=== PATIENT | female | born 1985 | race Caucasian/White ===

== ENCOUNTER 2020-04-07 16:57 | Outpatient (CLI) | payer BC, SELFPAY ==
--- NOTE | ~2020-04-07 | MM_ITS ---
EXAMINATION: MM screening alejo BI w fernando HISTORY: Screening mammogram TECHNIQUE: Craniocaudal and mediolateral oblique 3-D tomosynthesis images were obtained and synthetic 2-D images were generated. CAD analysis was submitted and interpreted. COMPARISON: None, baseline BREAST PARENCHYMAL COMPOSITION: The breasts are heterogeneously dense, which may obscure small masses . FINDINGS: RIGHT BREAST: There are possible low-density masses in the middle third of the inner breast. No suspi cious calcification or architectural distortion are identified.. LEFT BREAST: There is a 4 mm mass in the middle third of the outer breast and a possible low density subareolar mass. No suspicious calcification or architectural distortion are identified.. IMPRESSION: 1. Bilateral breast findings as described above. 2. Additional mammographic views and possible breast ultrasound are recommended to evaluate for malig scott and establish a baseline given that this is the first mammographic examination. BI-RADS Category 0: Incomplete: Needs additional imaging evaluation. Reviewed, dictated and finalized at location A. CT CONTROL INSPECTOR IMPRESSION: 1. Bilateral breast findings as described above. 2. Additional mammographic views and possible breast ultrasound are recommended to evaluate for malignancy and establish a baseline given that this is the fir st mammographic examination. BI-RADS Category 0: Incomplete: Needs additional imaging evaluation.
== END 2020-04-07 16:58 | disposition home or self-care (01) ==
DX: Z12.31 Encounter for screening mammogram for malignant neoplasm of breast (principal); R92.8 Other abnormal and inconclusive findings on diagnostic imaging of breast
CPT/HCPCS: 77063; 77067

== ENCOUNTER 2020-05-22 11:32 | Outpatient (CLI) | payer BC, SELFPAY ==
--- NOTE | ~2020-05-22 | MMUS_ITS ---
EXAMINATION: MM diagnostic mammo BI, US breast BI complete HISTORY: Follow-up possible breast masses. TECHNIQUE: Additional 3-D tomosynthesis images of the breasts were performed and synthetic 2-D images were generated. CAD analysis was submitted and interpreted. High resolution bilateral limited breast ultrasound was performed. COMPARISON: 04/07/2020 BREAST PARENCHYMAL COMPOSITION: The breasts are heterogenously dense, which may obscure small masses. FINDINGS: MAMMOGRAPHIC FINDINGS: There are no suspicious masses, calcifications or architectural distortion in either breast to sugges t malignancy. In the mid outer aspect of the left breast there is a small circumscribed radiolucent m ass, likely benign lymph node. ULTRASOUND: Right breast ultrasound: Normal heterogeneous echotexture without focal solid or cystic mass. Left breast ultrasound: At 12:00 near the nipple there is a hypoechoic mass with some irregular margins and mixed posterior a ttenuation measuring 11 x 7 x 6 mm. This mass appears to be contiguous with adjacent prominent ducts, possibly a dilated subareolar duct. No additional suspicious masses are identified. IMPRESSION: 1. Probable benign left breast mass, most likely dilated subareolar duct. 2. Recommend 6 month follow-up left breast ultrasound BI-RADS category 3, probably benign findings. Reviewed, dictated and finalized at location A. AL ASSISTANT IMPRESSION: 1. Probable benign left breast mass, most likely dilated subareolar duct. 2. Recommend 6 month follow-up left breast ultrasound BI-RADS category 3, probably benign findings.
== END 2020-05-22 11:33 | disposition home or self-care (01) ==
LOC: ANHIMG 11:36
DX: R92.8 Other abnormal and inconclusive findings on diagnostic imaging of breast (principal)
CPT/HCPCS: 76641; 77066

== ENCOUNTER 2024-04-22 00:12 | Emergency (ER) | payer BC, SELFPAY ==
--- NOTE | ~2024-04-22 | XR_ITS ---
Portable chest x-ray Comparison: None Clinical History: Chest pain Findings: Lungs are clear, without focal consolidation or pleural effusion. Cardiomediastinal silho uette is unremarkable. Bones and soft tissues are unremarkable. Impression: Clear lungs. Reviewed, dictated and finalized at location M. TANCE ABUSE COUNSELOR Impression: Clear lungs.
--- NOTE | 2024-04-22 00:13 | ECG_ITS ---
Test Date: 2024-04-22 00:25:01 Measurements Intervals Walters Rate: 81 P: 28 NJ: 152 QRS: 38 QRSD: 106 T: 52 QT: 400 QTc: 466 Interpretive Statements SINUS RHYTHM No previous ECG available for comparison Electronically Signed On 04-22-2024 18:08:27 FRUIT OR NUT GROWER by Shania Perez M.D.
[2024-04-22 00:14] VITALS: BP 100/86; PULSE 88; RESP 17; TEMP 36.6; O2SAT 100
[2024-04-22] MEDS: ASPIRIN 81 MG CHEWABLE TABLET 324 MG PO (00:23)
--- NOTE | 2024-04-22 00:30 | ED_ITS ---
HPI - Chest Pain General Chief Complaint: Chest Pain Stated Complaint: epigastric/chest pain Time Seen by Provider: 04/22/24 00:26 History of Present Illness HPI narrative: 38-year-old female presents to emergency department for sudden-onset epigastric abdominal pain that started at 2100 tonight. Patient states she had a salad with ranch dressing for a chicken just prior to the onset of symptoms. She describes the pain as a tight squeezing sensation, does not radiate. Reports a history of C-sections, otherwise no abdominal surgeries. Denies cough, congestion, fever, dysuria or hematuria. No cardiac history. Endorses nausea, no vomiting or diarrhea. Patient is on wegovy for weight loss. Denies smoking. States she drinks alcohol socially. Denies melena or hematochezia. Related Data Allergies Allergy/AdvReac Type Severity Reaction Status Date / Time No Known Allergies Allergy Verified 04/22/24 00:13 Review of Systems 2 Review of Systems: All systems reviewed & are unremarkable except as noted in HPI and below Exam 2 Narrative: GENERAL: Well-appearing, well-nourished, and in no acute distress. HEAD: Normocephalic, atraumatic. EYES: EOMI. ENT: Nares clear, no rhinorrhea or epistaxis. Mucous membranes moist. NECK: Supple. CHEST: Clear to auscultation. No respiratory distress. HEART: Regular rate and rhythm. No murmur heard. Normal peripheral pulses. ABDOMEN: Normoactive bowel sounds. Abdomen soft with tenderness in the epigastrium. No rebound, guarding or rigidity. Negative Maria's. No CVA tenderness EXTREMITIES: Normal range of motion. No edema. SKIN: Warm, dry, no rash. NEURO: No focal deficits. Alert and oriented x3 Course Vital Signs Vital signs: Vital Signs Temperature 97.8 F 04/22/24 00:14 Pulse Rate 88 04/22/24 00:14 Respiratory Rate 17 04/22/24 00:14 Blood Pressure 100/86 04/22/24 00:14 Pulse Oximetry 100 04/22/24 00:14 Oxygen Delivery Room Air 04/22/24 00:14 Temperature 97.8 F 04/22/24 00:14 Pulse Rate 70 04/22/24 00:39 Respiratory Rate 12 04/22/24 00:39 Blood Pressure 124/69 04/22/24 00:39 Pulse Oximetry 100 01/20/25 00:39 Oxygen Delivery Room Air 04/22/24 00:39 MDM - Chest Pain MDM Narrative Medical decision making narrative: 38-year-old female presents to the emergency department for epigastric abdominal pain that started at 9:00 p.m. today after eating a salad with range in for chicken. Triage vitals are stable. Exam is significant for tenderness to the epigastrium. Remainder of abdomen is soft and nontender, no rebound or rigidity, no guarding, negative Maria's sign. DX includes gastritis, GERD, pancreatitis, cholecystitis, ACS, other Lab work without leukocytosis or anemia. Chemistries are unremarkable with normal LFTs, normal lipase. EKG shows normal sinus rhythm with a rate of 81 ppm, normal AL interval, normal QRS duration, normal QTC, no ischemic changes. Chest x-ray without acute cardiopulmonary findings. Patient received Pepcid, Zofran and GI cocktail. Unfortunately she immediately vomited the GI cocktail. She then received IV Protonix, IV Reglan and re- attempted the GI cocktail with significant improvement. Patient states she feels much better and would like to be discharged home. Presentation consistent with gastritis. Will provide GI cocktail for home and Pepcid. Advised follow- up with GI. Return precautions discussed. She and her are agreeable with the plan verbalized understanding. Discharged in stable condition. Lab Data 04/22/24 00:29 04/22/24 00:29 Labs: Lab Results 04/22/24 Range/Units 00:29 WBC 9.8 (4.5-10.0) K/mm3 RBC 4.14 L (4.2-5.4) M/mm3 Hgb 12.1 (12.0-15.0) g/dL Hct 37.2 (37.0-47.0) % MCV 89.9 (80-100) fl MCH 29.2 (26-34) pg MCHC 32.5 (32-36) g/dl RDW 12.9 (11.5-14.5) % Plt Count 300 (150-375) k/mm3 MPV 9.1 (7.4-10.4) fl Immature Gran % (Auto) 0.3 (0-0.5) % Neut % (Auto) 64.5 (45.5-73.1) % Lymph % (Auto) 26.1 (18.3-44.2) % [place] % (Auto) 7.2 (2.6-8.5) % Eos % (Auto) 1.6 (0-4.4) % Baso % (Auto) 0.3 (0.2-1.2) % Lymph # (Auto) 2.56 (0.9-3.2) K/mm3 [place] # (Auto) 0.7 H (0.1-0.6) K/mm3 Eos # (Auto) 0.2 (0-0.3) K/mm3 Baso # (Auto) 0.0 (0.0-0.1) K/mm3 Abs Immat Gran (auto) 0.03 (0.00-0.031) K/mm3 Absolute Neuts (auto) 6.3 (1.3-6.7) K/mm3 Absolute Nucleated RBC 0.000 (0.0-0.012) K/mm3 Nucleated RBC % 0.0 (0.0-0.2) % PT 12.8 (11.1-14.7) Seconds INR 0.9 APTT 29.7 (22.3-36.8) Seconds Sodium 138 (137-145) mmol/L Potassium 3.7 (3.4-5.0) mmol/L Chloride 102 (98-107) mmol/L Carbon Dioxide 28 (22-30) mmol/L Anion Gap 8 (4-12) mmol/L BUN 9 (7-17) mg/dL Creatinine 0.90 (0.7-1.0) mg/dL Estim Creat Clear Calc 91 ml/min Estimated GFR > 60 (59 - ) Glucose 110 (65-110) mg/dL Calcium 8.7 (8.4-10.2) mg/dL Total Bilirubin 0.4 (0.2-1.3) mg/dL AST 20 (14-36) U/L ALT 10 (6-35) U/L Alkaline Phosphatase 58 (38-126) U/L Troponin I < 0.012 (0.000-0.034) ng/mL Total Protein 7.0 (6.3-8.2) g/dL Albumin 3.9 (3.5-5.1) g/dL Lipase 85 (23-300) U/L Discharge Plan Discharge Clinical Impression: Abdominal pain, epigastric Patient Disposition: Home, Self-Care Condition: Stable Instructions: Antibiotic Form, Abdominal Pain (ED) Additional Instructions: Your evaluated in the emergency department for epigastric abdominal pain. Your workup here is reassuring. Her presentation is consistent with inflammation of the stomach lining called gastritis as discussed. Please stay away from acidic foods, spicy foods, fatty foods, alcohol, NSAIDs such as ibuprofen/Motrin, naproxen/Aleve, coffee. Take the famotidine as needed and the viscous lidocaine and Maalox as needed. Follow up with the GI doctor. Follow up with her primary care provider. Return to the emergency department if you develop chest pain, shortness of breath, fever 100.4 or greater, you are unable to tolerate food or fluids, blood in her stool, dark tarry stools or other concerning symptoms. Patient Language: Estonian Prescriptions: New lidocaine HCl [Lidocaine Viscous] 2 % solution 1 applic PO TID PRN (Reason: pain) Qty: 100 0RF alum-mag hydroxide-simeth [Maalox Maximum Strength] 400-400-40 mg/5 mL suspension 5 ml PO QID PRN (Reason: indigestion) Qty: 3000 0RF famotidine 20 mg tablet 20 mg PO DAILY Qty: 14 0RF ondansetron 4 mg tablet,disintegrating 4 mg PO Q8H Qty: 10 0RF Follow-up/Referrals: PHYSICIAN NOT ON STAFF,NONSTAFF [Primary Care Provider] - Harley Díaz MD [Physician] -
[2024-04-22] MEDS: BELLADONNA ALK/PHENOB ELIX 10 ML, MAG HYDROX/ALUMINUM HYD/SIMETH 30 ML, LIDOCAINE 2% VI... PO ×2 (00:33→01:43)
[2024-04-22] MEDS: ONDANSETRON INJ 4 MG/2 ML VIAL IV PUSH (00:34)
[2024-04-22] MEDS: FAMOTIDINE 20 MG/2 ML VIAL IV PUSH (00:35)
[2024-04-22 00:36] LABS: Basophils Percent Auto 0.3 % (0.2-1.2); Eosinophils Absolute Auto 0.2 K/mm3 (0-0.3); Eosinophils Percent Auto 1.6 % (0-4.4); Hematocrit 37.2 % (37.0-47.0); Hemoglobin 12.1 g/dL (12.0-15.0); Immature Granulocyte Absolute 0.03 K/mm3 (0.00-0.031); Immature Granulocyte Percent A 0.3 % (0-0.5); Lymphocytes Absolute Auto 2.56 K/mm3 (0.9-3.2); Lymphocytes Percent Auto 26.1 % (18.3-44.2); Mean Corpuscular HGB Conc 32.5 g/dl (32-36); Mean Corpuscular Hemoglobin 29.2 pg (26-34); Mean Corpuscular Volume 89.9 fl (80-100); Mean Platelet Volume 9.1 fl (7.4-10.4); Monocytes Absolute Auto 0.7 K/mm3 (0.1-0.6); Monocytes Percent Auto 7.2 % (2.6-8.5); Neutrophils Absolute Auto 6.3 K/mm3 (1.3-6.7); Neutrophils Percent Auto 64.5 % (45.5-73.1); Platelet Count Result 300 k/mm3 (150-375); Red Blood Count 4.14 M/mm3 (4.2-5.4); Red Cell Distribution Width 12.9 % (11.5-14.5); White Blood Count 9.8 K/mm3 (4.5-10.0)
[2024-04-22 00:38] VITALS: PULSE 77
[2024-04-22 00:39] VITALS: BP 124/69; PULSE 70; RESP 12; O2SAT 100
[2024-04-22 00:47] LABS: Alanine Aminotransferase 10 U/L (6-35); Albumin Level 3.9 g/dL (3.5-5.1); Alkaline Phosphatase 58 U/L (38-126); Anion Gap 8 mmol/L (4-12); Aspartate Amino Transferase 20 U/L (14-36); Bilirubin,Total 0.4 mg/dL (0.2-1.3); Blood Urea Nitrogen 9 mg/dL (7-17); Calcium 8.7 mg/dL (8.4-10.2); Carbon Dioxide 28 mmol/L (22-30); Chloride 102 mmol/L (98-107); Estimated CRCL calculation 91 ml/min; Estimated Glomerular Filt Rate > 60; Glucose 110 mg/dL (65-110); Lipase 85 U/L (23-300); Potassium 3.7 mmol/L (3.4-5.0); Sodium 138 mmol/L (137-145)
[2024-04-22 00:57] LABS: Troponin I < 0.012 ng/mL (0.000-0.034)
--- NOTE | 2024-04-22 01:04 | PC.NURSE ---
Patient states that the medications did not help and that she vomited. Notified EDP NEREYDA Camarillo
[2024-04-22] MEDS: PANTOPRAZOLE SODIUM IV 40 MG VIAL IV PUSH (01:07)
[2024-04-22 01:09] LABS: INR 0.9; Prothrombin Time 12.8 Seconds (11.1-14.7)
[2024-04-22 01:10] LABS: Partial Thromboplastin Time 29.7 Seconds (22.3-36.8)
[2024-04-22] MEDS: METOCLOPRAMIDE HCL INJ 10 MG/2 ML VIAL IV PUSH (01:25)
--- OUTSIDE RECORDS SUMMARY | 2024-04-25 11:06 | XMS_ITS | Clinical Summary ---
Author Organization [facility] Address [address] [place] [address] Care Team Providers Care Brewery Representative Name Role Phone Unavailable Primary Care Provider Unavailabl e Allergies No known active allergies Medications semaglutide, weight loss, (Wegovy) 0.5 mg/0.5 mL Pen Injector Inject 0.5 mg under the skin once weekly 2 mL 6 03/25/2024 5:41 PM AGRICULTURAL SCIENTIST 01/09/2024 Active Encounters Date Type Department Care Team Description 02/27/2024 External Device Data STL ABSTRACTION Provider, Abstract from Last 3 Months Social History Tobacco Use Types Packs/Day Years Used Date Smoking Tobacco: Never Assessed Comments Unknown Sex and Gender Information Value Date Recorded Sex Assigned at Not on file Legal Sex Female 6:25 PM AGRICULTURAL SCIENTIST Gender Identity Not on file Sexual Orientation Not on file Plan of Treatment Health Maintenance Due Date Last Done Comments DTAP/TDAP/TD VACCINES (1 - Tdap) 06/05/2003 HEPATITIS B VACCINES (1 of 3 - 19+ 3-dose series) 06/05/2003 CERVICAL CANCER SCREENING 2014 INFLUENZA VACCINE (#1) 2023 HPV VACCINES Aged Out No longer eligi ble based on patient's age to complete this topic Insurance RX [facility] [employer]
--- OUTSIDE RECORDS SUMMARY | 2024-04-25 11:06 | XMS_ITS | Clinical Summary ---
Author Organization [facility] Address [facility] access hospital[address] [facility] [place] [address] [place] [address] Care Team Providers Care Fresh Foods Cake Decorator Name Role Phone Tatyana, Miri ROTHMAN Primary Care Provider Allergies Active Allergy Reactions Criticality Noted Date Comments Loratadine Rash Low 01/26/2010 Medications buPROPion XL (WELLBUTRIN XL) 150 MG 24 hr tabletIndications :Generalized anxiety disorder Take 1 tablet (150 mg total) by mouth daily. 90 tablet 3 4 Active lisdexamfetamine (VYVANSE) 30 MG capsuleIndication s:Attention deficit hyperactivity disorder (ADHD), predominantly inattentive type Take 1 capsule (30 mg total) by mouth every morning. 30 capsule 5 Active semaglutide-weigh t management (WEGOVY) 1 mg/dose injection (PEN)Indications: Weight Loss Inject 1 mg into the skin once a week. Indications : Weight Loss 2 mL 2 5 Active semaglutide-weigh t management (WEGOVY) 0.5 mg/dose injection (PEN)Indications: Weight Loss Inject 0.5 mg into the skin once a week. Indications : Weight Loss 2 mL 6 4 04/19/19 25 Discontinu ed(Dose adjustment ) lisdexamfetamine (VYVANSE) 30 MG capsuleIndication s:Attention deficit hyperactivity disorder (ADHD), predominantly inattentive type Take 1 capsule (30 mg total) by mouth every morning. 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) 06/26/2017 08/06/2018 Previous section 06/26/2017 Encounters Date Type Department Care Team Description 04/19/2024 11:00 AM RESORT HOUSEKEEPER Office Visit [facility] Internal [address] [address] Miri Joe APNP Weight Check 04/19/[address] [phone] Miri Joe APPHILIP Prior Authorization (lisdexamfetamine (VYVANSE) 30 MG capsule) 04/19/2024 Travel 03/20/[address] [phone] Miri Joe APNP Medication 02/20/[address] [phone] Miri Joe APNP Medication Request 02/06/2024 8:40 AM RESORT HOUSEKEEPER Office Visit [address] [phone] Miri Joe APNP Weight Check 02/06/2024 Travel from Last 3 Months Immunizations Name Administration Dates Next Due Fluzone (IIV3, Trivalent, 0. 5 ML Prefilled Syringe) 02/06/2024 Fluzone 6 Months+ Quad (0.5 mL Prefilled Syringe) 03/10/2023,01/01/2021,01/11/2019 Influenza Adult (Generic) 05/22/2019 MODERNA COVID-19 (12+) MRNA, LNP-S, PF, 100 MCG/ 0.5 ML DOSE 08/06/2020,07/09/2020 Tdap (Adacel) 03/10/2023 Family History Medical History Relation Comments Cancer Father MELANOMA Cancer Mother SKIN CANCER Breast Cancer Paternal Aunt Asthma Son Heart Attack Neg Hx Stroke Neg Hx Relation Status Comments Father Mother Paternal Aunt Son Social History Tobacco Use Types Packs/Day Years Used Date Smoking Tobacco: Former Cigarettes 0.5 10 0 10/19/2006 - 10/19/2016 Smokeless Tobacco: Never Tobacco Cessation:Counseling Given: Yes Comments: vapes some Alcohol Use Standard Drinks/Week Comments Yes 0 (1 standard drink = 0.6 oz pur e alcohol) seldom; socially PHQ-2 Answer Date Recorded Patient Health Questionnaire-2 Score 0 05/19/2023 Comments No Sex and Gender Information Value Date Recorded Sex Assigned at Not on file Legal Sex Female 7:44 PM CDT Gender Identity Not on file Sexual Orientation Not on file Last Filed Vital Signs Vital Sign Reading Time Taken Comments Blood Pressure 112/76 04/19/2024 11:12 AM RESORT HOUSEKEEPER Pulse 98 04/19/2024 11:12 AM RESORT HOUSEKEEPER Temperature 37 ??C (98.6 ??F) 04/19/2024 11:12 AM RESORT HOUSEKEEPER Respiratory Rate 16 04/19/2024 11:12 AM RESORT HOUSEKEEPER Oxygen Saturation 98% 04/19/2024 11:12 AM RESORT HOUSEKEEPER Inhaled Oxygen Concentration - - Weight 105 kg (231 lb 6.4 oz) 04/19/2024 11:12 A M RESORT HOUSEKEEPER Height 170.2 cm (5' 7 ) 04/19/2024 11:12 AM RESORT HOUSEKEEPER Body Mass Index 36.24 04/19/2024 11:12 AM RESORT HOUSEKEEPER Plan of Treatment Health Maintenance Due Date Last Done Comments Cervical Cancer Screening Pap Smear (Age 30 to 64) Every 3 Years 1984 Hepatitis B Vaccines (1 of 3 - 19+ 3-dose series) 06/05/2003 Cervical Cancer Screening Pap with HPV Testing (Age 30 to 64) Every 5 Years 11/19/2021 11/19/2016 Cervical Cancer Screening with HPV 11/19/2021 Annual Physical 12/17/2022 12/17/2021 COVID-19 Vaccine ( season) 2023 08/06/2020, 07/09/2020 PHQ-2 (Physician [place]) 05/19/2024 05/19/2023 DTaP, Tdap and Td Vaccines (2 - Td or Tdap) 03/10/2033 03/10/2023 Hepatitis C Completed 06/02/2022 Influenza Adult Completed 02/06/2024, 1211/2022, 01/01/2021, Additional history exists HPV Vaccines Aged Out No longer eligi ble based on patient's age to complete this topic Meningococcal B Vaccine Aged Out No l onger eligible based on patient's age to complete this topic Meningococcal Vaccine Aged Out No janeen malu eligible based on patient's age to complete this topic Pneumococcal Vaccine: Pediatrics (0 to 5 Years) and At-Risk Patients (6 to 64 Years) Aged Out No longer eligible based on patient's age to complete this topic RSV Immunizations Under 20 Months Aged Out No longer eligible based on patient's age to complete this topic Procedures Procedure Name Priority Date/Time Associated Diagnosis Comments HEPATITIS C ANTIBODY Routine 06/02/2022 9:24 AM RESORT HOUSEKEEPER Need for hepatitis C screening test OUTSIDE CYTOPATH CERV/VAG INTERPRET (PAP) 11/19/2016 from Last 3 Months or Most Recently Relevant to Health Maintenance Results * HEPATITIS C ANTIBODY (06/02/2022 9:24 AM RESORT HOUSEKEEPER) HEPATITIS C AB NON-REACTI VE NON-REACTI VE 06/02/2022 3:42 PM RESORT HOUSEKEEPER [facility] 06/02/2022 9:24 AM RESORT HOUSEKEEPER Dolores Le [facility] Final Re sult [facility] [address] [place] [address], [place] [phone] * OUTSIDE CYTOPATH VAG/CERV PAP WITH HPV (11/19/2016) 11/19/2016 Narrative 11/19/2016 Ordered by an unspecified provider. us Documents Scanned SCANNING Final Result from Last 3 Months or Most Recently Relevant to Health Maintenance Insurance [facility] Advance Directives * Full Code (Latest Code Status on File) Date Activated Date Inactivated Comments 06/26/2017 3:59 PM 06/29/2017 4:52 PM * Full Code Date Activated Date Inactivated Comments 06/26/2017 10:23 AM 06/26/2017 3:59 PM Care Teams Fresh Foods Cake Decorator Relationship Specialty Start Date End Date Miri Joe APNP [address] [place] [address] PCP - General NURSE PRACTITIONER 03/10/23
--- OUTSIDE RECORDS SUMMARY | 2024-04-25 11:06 | XMS_ITS | Clinical Summary ---
Author Organization [facility] Address [address] [place] [phone] Care Team Providers Care Tin Roofer Name Role Phone Unavailable Primary Care Provider Unavailabl e Social History Tobacco Use Types Packs/Day Years Used Date Smoking Tobacco: Never Assessed Comments Unknown Sex and Gender Information Value Date Recorded Sex Assigned at Not on file Legal Sex Female 10:14 AM CUSTOMS PORT DIRECTOR Gender Identity Not on file Sexual Orientation Not on file Plan of Treatment Health Maintenance Due Date Last Done Comments Hepatitis C Virus (HCV) Screening 1984 TdaP Immunization 1984 Hepatitis B Immunization (1 of 3 - 19+ 3-dose series) 06/05/2003 Pap Smear 2005 Cervical Cancer Screening (CCS) 2014 HPV/Cotest 2014 Influenza Immunization (#1) 2023 01/11/2019 SARS-COV-2 Immunization ( season) 2023 Respiratory Syncytial Virus (RSV) Immunization (Adult) (1 - 1-dose 75+ series) 06/05/2059 Meningococcal Immunization (ACWY) Aged Out No longer eligible based on patient's age to complete this topic Pneumococcal Immunization Combined Aged Out No longer eligible based on patient's age to complete this topic Rotavirus Immunization Aged Out No lo nger eligible based on patient's age to complete this topic Insurance [employer] on file
--- OUTSIDE RECORDS SUMMARY | 2024-04-25 11:06 | XMS_ITS | Encounter Summary ---
Author Organization [facility] Address [facility] [place] [address] [place] [address] Care Team Providers Care Dairy Store Manager Name Role Phone Doris Andersne MD Primary Care Provider Unavailable Dolores Le- Primary Care Provider + Miri Joe Primary Care Provider [phone] Encounter Details Date Type Department Care Team (Late st Contact Info) Description 05/10/2017 [facility] [address] [place] [address] Aurelio Grey MD [address] [place] [address] Social History Tobacco Use Types Packs/Day Years Used Date Smoking Tobacco: Never Assessed Comments Unknown Sex and Gender Information Value Date Recorded Sex Assigned at Not on file Legal Sex Female 7:44 PM CDT Gender Identity Not on file Sexual Orientation Not on file documented as of this encounter Plan of Treatment Not on file documented as of this encounter Visit Diagnoses Diagnosis Preop testing- Primary Preoperative examination, unspecified documented in this encounter Care Teams Dairy Store Manager Relationship Specialty Start Date End Date Doris Andersen MD PCP - General 12/18/11 Dolores Le FNP-MP [address] [facility], [address] [place] [address] PCP - General NURSE PRACTITIONER 07/25/18 03/09/23 Miri Joe APNP [address] [place] [id number] PCP - General NURSE PRACTITIONER 03/10/23 documented as of this encounter
--- OUTSIDE RECORDS SUMMARY | 2024-04-25 11:06 | XMS_ITS | Encounter Summary ---
Author Organization [facility] Address [address] [place] [address]. [place] [address] [place] [address] Care Team Providers Care Open Cut Examiner Name Role Phone Dolores Le [facility] Primary Care Provider + Miri Joe Primary Care Provider [phone] Encounter Details Date Type Department Care Team (Late st Contact Info) Description 07/11/2017 Hospital Follow-up Call [facility] [place], [place] [phone] Grace Esparza RN Social History Tobacco Use Types Packs/Day Years Used Date Smoking Tobacco: Former Cigarettes 0.5 7 0 10/19/2009 - 10/19/2016 Smokeless Tobacco: Former Alcohol Use Standard Drinks/Week Comments Yes 0 (1 standard drink = 0.6 oz pur e alcohol) SOCIALLY PRIOR TO Comments No Sex and Gender Information Value Date Recorded Sex Assigned at Not on file Legal Sex Female 7:44 PM CDT Gender Identity Not on file Sexual Orientation Not on file documented as of this encounter Plan of Treatment Not on file documented as of this encounter Visit Diagnoses Not on filedocumented in this encounter Care Teams Open Cut Examiner Relationship Specialty Start Date End Date Dolores Le [facility] [address] [facility], [address] [place] [address] PCP - General NURSE PRACTITIONER 07/25/18 03/09/23 Miri Joe APNP [address] [place] [address] PCP - General NURSE PRACTITIONER 03/10/23 documented as of this encounter
== END 2024-04-22 02:09 | disposition home or self-care (01) ==
PROVIDERS: Emergency Medicine; Emergency Provider Physician Assistant
DX: R10.13 Epigastric pain (principal)
CPT/HCPCS: 36415; 71045; 80053; 83690; 84484; 85025; 85610; 85730; 93005; 96374; 96375; 99284; A9270; J2405; J2470; J2765